=== PATIENT | male | born 1960 | race Two or more races ===

== ENCOUNTER 2016-10-06 03:48 | Inpatient (IN) | payer SELFPAY ==
[~2016-10-06] VITALS: Ht 170.2 cm; Wt 63.5 kg
[2016-10-06] MEDS ORDERED: IBUP-1619 PO (03:55)
--- NOTE | 2016-10-06 03:55 | NUR ---
TO BED 5 A 55 YO MALE BB RA88 FROM HOME. PER EMS REPORT,PATIENT HAD A SYNCOPAL EPISODE. PER PATIENT HE WAS TRYING TO MAKE COFFEE AND HE FELT WEAK AND SQUAT DOWN. HOWEVER PATIENT DID NOT BELIEVE THAT HE HIT HIS HEAD. UPON ARRIVAL TO ER, PATIENT IS AAOX3, NO S/S OF ACUTE DISTRESS. VSS. BREATHING EVEN AND UNLABORED. SAFETY MEASURES INITIATED. GOWNED. AWAITING FOR ER MD VINSON.
[2016-10-06] MEDS ORDERED: IV NS 0.9% 1,000 ML BAG IV ONE (04:00)
[2016-10-06] MEDS ORDERED: IV SET PRIMARY 1 EA INFUS.SET MC ONE (04:14)
[2016-10-06] MEDS ORDERED: IV NS 0.9% 1,000 ML ONE (04:14)
[2016-10-06 04:19] LABS: BASOPHILS # (AUTO) 0.1 /CMM (0.0-0.2); BASOPHILS % (AUTO) 0.4 % (0.0-2.0); EOSINOPHILS % (AUTO) 0.2 % (0.0-6.0); HEMATOCRIT 33 % (39-51); HEMOGLOBIN 11.2 g/dL (13.5-17.5); LYMPHOCYTES # (AUTO) 1.9 /CMM (0.8-4.8); LYMPHOCYTES % (AUTO) 10.6 % (20.0-44.0); MEAN CORPUSCULAR HEMOGLOBIN 30 PG (26.0-33.0); MEAN CORPUSCULAR HGB CONC 35 g/dl (31.0-36.0); MEAN CORPUSCULAR VOLUME 86 fL (80-96); MONOCYTES # (AUTO) 0.8 /CMM (0.1-1.30); MONOCYTES % (AUTO) 4.5 % (2.0-12.0); NEUTROPHILS # (AUTO) 15.4 /CMM (1.8-8.9); NEUTROPHILS % (AUTO) 84.3 % (43.0-81.0); PLATELET COUNT (AUTO) 394 /CMM (150-450); RDW COEFFICIENT OF VARIATION 14.2 (11.5-15.0); RED BLOOD CELL COUNT(AUTO) 3.77 MIL/uL (4.5-6.0); WHITE BLOOD COUNT (AUTO) 18.3 K/uL (4.3-11.0)
[2016-10-06 04:36] LABS: TROPONIN I < 0.017 ng/mL (0.00-0.056)
[2016-10-06 04:38] LABS: CALCIUM, SERUM 8.8 mg/dL (8.5-10.1); CARBON DIOXIDE 24 mmol/L (21-32); CHLORIDE 98 mmol/L (98-107); CREATININE 0.9 mg/dL (0.6-1.3); GLUCOSE 103 mg/dL (74-106); POTASSIUM 3.7 mmol/L (3.5-5.1); SODIUM SERUM 130 mmol/L (136-145); UREA NITROGEN, BLOOD 10 mg/dL (7-18)
[2016-10-06 04:43] LABS: INR 1.15 (0.87-1.13); PROTHROMBIN TIME 12.4 SECS (9.5-12.7)
[2016-10-06 04:44] LABS: ALANINE AMINOTRANSFERASE 43 U/L (12-78); ALBUMIN 2.4 g/dL (3.4-5.0); ALKALINE PHOSPHATASE 69 U/L (46-116); ASPARTATE AMINOTRANSFERASE 39 U/L (15-37); BILIRUBIN,DIRECT 0.2 mg/dL (0.0-0.2); BILIRUBIN,TOTAL 0.8 mg/dL (0.2-1.0); TOTAL PROTEIN, SERUM 6.6 g/dL (6.4-8.2)
--- NOTE | 2016-10-06 04:54 | NUR ---
URINE COLLECTED VIA CLEAN CATCH, CALLED LAB FOR DIRECTOR OF SPECIAL SERVICES.
[2016-10-06 05:06] LABS: APPEARANCE,URINE CLEAR (CLEAR); BILIRUBIN,URINE NEGATIVE (NEGATIVE); BLOOD, URINE NEGATIVE Ery/uL (NEGATIVE); COLOR,URINE YELLOW (YELLOW); KETONES,URINE TRACE (NEGATIVE); LEUKOCYTE ESTERASE ,URINE NEGATIVE (NEGATIVE); NITRITE, URINE NEGATIVE (NEGATIVE); PH,URINE 5.5 (5.0-8.0); PROTEIN,URINE TRACE mg/dl (NEGATIVE); UGLUCOSE NEGATIVE (NEGATIVE)
[2016-10-06 05:12] LABS: BACTERIA,URINE None seen /HPF (None Seen); RBC,URINE NONE SEEN /HPF (0-2); SQUAMOUS EPITHELIAL CELL,UR Rare /HPF (None Seen); WBC,URINE 0-2 /HPF (0-3)
--- NOTE | 2016-10-06 05:48 | NUR ---
CALLED [facility] TO EXPEDITE RADIOLOGIST'S REPORT OF CXR.
[2016-10-06] MEDS ORDERED: ONDANSETRON HCL/PF 4 MG/2 ML VIAL IVP PRN (06:00)
[2016-10-06] MEDS ORDERED: Z GUARD REMEDY 2 OZ OINT TP PRN (06:00)
[2016-10-06] MEDS ORDERED: MAGNESIUM HYDROXIDE 30 ML UDC PO PRN (06:00)
[2016-10-06] MEDS ORDERED: MAG HYDROX/AL HYDROX/SIMETH 30 ML UDC PO PRN (06:00)
[2016-10-06] MEDS ORDERED: ACETAMINOPHEN 325 MG TABLET PO PRN (06:00)
[2016-10-06] MEDS ORDERED: ZOLPIDEM TARTRATE 5 MG TABLET PO PRN (06:00)
--- NOTE | 2016-10-06 06:21 | NUR ---
REPORT GIVEN TO MJ FAULKNER FOR TELE ADMISSION AND AJ.
[2016-10-06] MEDS ORDERED: HYDROCODONE/APAP 5/325MG 1 EACH TABLET PO ONE (06:30)
[2016-10-06 06:35] VITALS: BP 106/64
[2016-10-06 06:45] VITALS: BP 106/64
--- NOTE | 2016-10-06 08:00 | NUR ---
MS RN ADMITTED A 55 YEAR OLD MALE, AWAKE,ALERT ORIENTED X4,NOT IN ANY FORM OF DISTRESS.CAME IN W/ DX OF SYNCOPE, DENIES PAIN AT THIS TIME, WILL MONITOR PATIENT'S CONDITION.
--- NOTE | 2016-10-06 08:30 | NUR ---
MS RN ON NPO FOR DR. AGNNON TO EVALUATE PATIENT.
--- NOTE | 2016-10-06 08:45 | NUR ---
MS RN WAS SEEN BY DR. TERESSA Cook/ ORDERS MADE AND CARRIED OUT.
[2016-10-06] MEDS: ACETYLCYSTEINE 10% 3,000 MG/30 ML VIAL PO SCH ×2 (09:00→18:37)
[2016-10-06] MEDS ORDERED: BARIUM SULFATE SUSP 450 ML BOTTLE PO ONE (09:52)
[2016-10-06 09:59] LABS: THYROID STIMULATING HORMONE 2.58 uIU/mL (0.358-3.74)
[2016-10-06] MEDS ORDERED: IOHEXOL-300 100 ML VIAL IV ONE (11:00)
[2016-10-06] MEDS ORDERED: CT SWABBABLE VALVE TRANS SET 1 EA INFUS.SET MC ONE (11:00)
[2016-10-06] MEDS ORDERED: IV NS 0.9% 250 ML IV ONE (11:00)
[2016-10-06] MEDS ORDERED: IV SET PRIMARY PUMP SET 1 EA INFUS.SET MC ONE (11:37)
--- NOTE | 2016-10-06 12:30 | NUR ---
MS FAULKNER WAS SEEN BY DR. NASRIN Cook/ ORDERS MADE AND CARRIED OUT.
[2016-10-06] MEDS: IV NS 0.9% 1,000 ML IV PRN ×2 (13:20→23:46)
[2016-10-06] MEDS: HYDROCODONE/APAP 5/325MG 1 EACH TABLET PO PRN ×3 (13:23→23:19)
[2016-10-06] MEDS: PANTOPRAZOLE 40 MG TABLET.DR PO SCH (13:24)
[2016-10-06 16:00] VITALS: BP 97/62
--- NOTE | 2016-10-06 19:20 | NUR ---
MS RN ON BED, NO DISTRESS NOTED.ALL NEEDS ATTENDED.
[2016-10-06 20:00] VITALS: BP 101/65
--- NOTE | 2016-10-06 20:00 | NUR ---
Received patient alert and oriented x4 with family at bedside pt was given norco 1839 was due until 2238 Pt has iv fluids of ns infusing at100 ml and hour no signs of infiltration noted. No signs of distressed noted fall and safety maintained. Pt monitored every hour and prn for safety and other needs pt may have. Will continue to monitor.
[2016-10-06] MEDS: IBUPROFEN 200 MG TABLET PO PRN (21:57)
--- NOTE | 2016-10-07 07:30 | NUR ---
PATIENT RECEIVED RESTING COMFORTABLY IN BED. NO S/S OR C/O PAIN OR DISTRESS NOTED. SIDE RAILS UP X2, CALL LIGHT LEFT WITHIN REACH. WILL CONTINUE PLAN OF CARE.
[2016-10-07 07:51] LABS: CALCIUM, SERUM 8.3 mg/dL (8.5-10.1); CREATININE 0.7 mg/dL (0.6-1.3); MAGNESIUM 1.9 mg/dL (1.8-2.4); POTASSIUM 4.3 mmol/L (3.5-5.1)
[2016-10-07 08:00] VITALS: BP 100/63
[2016-10-07 08:13] LABS: IMMUNOGLOBULIN A, SERUM 228 mg/dL (90-386); IMMUNOGLOBULIN G, SERUM 749 mg/dL (700-1600); IMMUNOGLOBULIN M, SERUM 37 mg/dL (20-172)
[2016-10-07 08:14] LABS: BASOPHILS % (AUTO) 0.2 % (0.0-2.0); EOSINOPHILS # (AUTO) 0.1 /CMM (0.0-0.7); EOSINOPHILS % (AUTO) 0.4 % (0.0-6.0); HEMATOCRIT 33 % (39-51); LYMPHOCYTES # (AUTO) 1.2 /CMM (0.8-4.8); LYMPHOCYTES % (AUTO) 9.5 % (20.0-44.0); MEAN CORPUSCULAR HEMOGLOBIN 30 PG (26.0-33.0); MEAN CORPUSCULAR HGB CONC 34 g/dl (31.0-36.0); MEAN CORPUSCULAR VOLUME 87 fL (80-96); MONOCYTES % (AUTO) 7.3 % (2.0-12.0); NEUTROPHILS # (AUTO) 10.9 /CMM (1.8-8.9); NEUTROPHILS % (AUTO) 82.6 % (43.0-81.0); PLATELET COUNT (AUTO) 356 /CMM (150-450); RDW COEFFICIENT OF VARIATION 14.6 (11.5-15.0); RED BLOOD CELL COUNT(AUTO) 3.73 MIL/uL (4.5-6.0); WHITE BLOOD COUNT (AUTO) 13.1 K/uL (4.3-11.0)
[2016-10-07] MEDS: PANTOPRAZOLE 40 MG TABLET.DR PO SCH (08:30)
[2016-10-07] MEDS: HYDROCODONE/APAP 5/325MG 1 EACH TABLET PO PRN ×3 (08:31→21:00)
[2016-10-07] MEDS: ACETYLCYSTEINE 10% 3,000 MG/30 ML VIAL PO SCH ×2 (08:38→17:08)
[2016-10-07] MEDS: IBUPROFEN 200 MG TABLET PO PRN (13:11)
[2016-10-07] MEDS: IV NS 0.9% 1,000 ML IV PRN (13:23)
--- NOTE | 2016-10-07 14:21 | NUR ---
NURSING AQUATIC SCIENTIST AND PATHOLOGY AWARE OF COMPUTED TOMOGRAPHY GUIDED NEEDLE BIOPSY. TO BE DONE TOMORROW (10/08/16) AT 0930. SPOKE WITH RN. PATIENT TO BE NPO AFTER MIDNIGHT. AWAITING CONSENTS FOR PROCEDURE AND MODERATE SEDATION. RN WILL CALL BACK TO CONFIRM CONSENTS HAVE BEEN OBTAINED.
[2016-10-07] MEDS ORDERED: SECONDARY IV SET 1 EA INFUS.SET MC ONE (14:37)
[2016-10-07] MEDS: SOD FERRIC GLUC 125 MG in IV NS 0.9% 100 ML IV SCH (14:45)
[2016-10-07] MEDS ORDERED: TUBERCULIN,PURIF.PROT.DERIV. 5 TU/0.1 ML VIAL ID ONE (15:30)
[2016-10-07 16:00] VITALS: BP 101/60
--- NOTE | 2016-10-07 18:29 | NUR ---
CHANGE OF SHIFT REPORT PT RESTING COMFORTABLY IN BED. NO S/S OR C/O PAIN OR DISTRESS NOTED. SIDE RAILS UP X2, CALL LIGHT LEFT WITHIN REACH. PT KEPT CLEAN, DRY, AND COMFORTABLE. NO SIGNIFICANT CHANGES FROM PREVIOUS SHIFT. WILL GIVE REPORT TO KRISTINE FAULKNER.
--- NOTE | 2016-10-07 19:10 | NUR ---
RN OPEN NOTES RECEIVED PATIENT AWAKE IN BED WITH FAMILY AT BEDSIDE. A/O X4. NO SIGNS OF DISTRESS OR DISCOMFORT. BREATHING EVEN AND UNLABORED. DENIES ANY PAIN AT THIS TIME. IV ACCESS IN LAC WITH NS INFUSING, PATENT AND INTACT, NO SIGNS OF REDNESS OR INFILTRATION. BED IN LOW LOCKED POSITION WITH SIDE RAILS X2. CALL LIGHT WITHIN REACH. WILL CONTINUE TO MONITOR.
[2016-10-07 20:00] VITALS: BP 113/67
--- NOTE | 2016-10-07 21:00 | NUR ---
RN NOTES ADMINISTERED NORCO 5/325 ORDERED FOR PAIN 8/10 IN LOWER BACK. WILL CONTINUE TO MONITOR.
--- NOTE | 2016-10-08 06:54 | NUR ---
RN CLOSING NOTES PATIENT RESTING IN BED EASILY AROUSABLE TO NAME. A/O X4. NO SIGNS OF DISTRESS OR DISCOMFORT. BREATHING EVEN AND UNLABORED. DENIES ANY PAIN AT THIS TIME. IV ACCESS IN LAC WITH NS INFUSING, PATENT AND INTACT, NO SIGNS OF REDNESS OR INFILTRATION. NO SIGNIFICANT CHANGES THROUGH THE NIGHT. ALL NEEDS MET. BED IN LOW LOCKED POSITION WITH SIDE RAILS X2. CALL LIGHT WITHIN REACH. WILL ENDORSE TO AM SHIFT FOR AJ.
[2016-10-08] MEDS: PANTOPRAZOLE 40 MG TABLET.DR PO SCH (07:30)
--- NOTE | 2016-10-08 07:52 | NUR ---
RN MS NOTES RECEIVED PATIENT IN BED, A/O X 4 AND VERBALLY RESPONSIVE. NO APPARENT DISTRESS NOTED, DENIES PAIN. PATIENT IS NPO, SCHEDULED FOR N Addendum: 10/08/16 at [address]757 [address] F[address] RN CT NEEDLE BIOPSY. IV ON LEFT AC PATENT INFUSING NS AT 60ML/HR. ALL NEEDS MET, CALL LIGHT WITHIN REACH.
[2016-10-08 08:00] VITALS: BP 113/68
--- NOTE | 2016-10-08 08:31 | NUR ---
SPOKE WITH RN. CT GUIDED NEEDLE BIOPSY RESCHEDULED FOR 15:30 TODAY. NURSING ITEM REPAIR MANAGER AWARE.
[2016-10-08 08:53] LABS: BASOPHILS % (AUTO) 0.3 % (0.0-2.0); EOSINOPHILS % (AUTO) 0.1 % (0.0-6.0); HEMATOCRIT 33 % (39-51); HEMOGLOBIN 11.2 g/dL (13.5-17.5); LYMPHOCYTES % (AUTO) 7.7 % (20.0-44.0); MEAN CORPUSCULAR HEMOGLOBIN 29 PG (26.0-33.0); MEAN CORPUSCULAR HGB CONC 34 g/dl (31.0-36.0); MEAN CORPUSCULAR VOLUME 86 fL (80-96); MONOCYTES % (AUTO) 7.3 % (2.0-12.0); NEUTROPHILS # (AUTO) 11.3 /CMM (1.8-8.9); NEUTROPHILS % (AUTO) 84.6 % (43.0-81.0); PLATELET COUNT (AUTO) 358 /CMM (150-450); RDW COEFFICIENT OF VARIATION 14.3 (11.5-15.0); RED BLOOD CELL COUNT(AUTO) 3.83 MIL/uL (4.5-6.0); WHITE BLOOD COUNT (AUTO) 13.4 K/uL (4.3-11.0)
[2016-10-08] MEDS: CYANOCOBALAMIN 500 MCG TABLET PO SCH (09:00)
[2016-10-08] MEDS: FOLIC ACID 1 MG TABLET PO SCH (09:00)
[2016-10-08 09:11] LABS: CALCIUM, SERUM 8.6 mg/dL (8.5-10.1); CREATININE 0.8 mg/dL (0.6-1.3); POTASSIUM 4.5 mmol/L (3.5-5.1)
[2016-10-08] MEDS ORDERED: oxyCODONE IR immediate release 5 MG CAPSULE PO PRN (14:00)
[2016-10-08] MEDS ORDERED: NALOXONE PREFILLED SYRINGE 2 MG/2 ML SYRINGE IV ONE (14:30)
[2016-10-08] MEDS ORDERED: MIDAZOLAM HCL 5MG/ML VIAL 25 MG/5 ML VIAL IV ONE (14:30)
[2016-10-08] MEDS ORDERED: FENTANYL PF 250MCG/5ML AMPUL IV ONE (14:30)
--- NOTE | 2016-10-08 14:30 | NUR ---
RN MS NOTES PATIENT WENT DOWN FOR CT BIOPSY.
[2016-10-08] MEDS ORDERED: LIDOCAINE HCL/PF 1% 30 ML SDV ONE (16:19)
[2016-10-08] MEDS: IV NS 0.9% 1,000 ML IV PRN (18:07)
[2016-10-08] MEDS: ACETAMINOPHEN 325 MG TABLET PO SCH (18:08)
[2016-10-08] MEDS: SOD FERRIC GLUC 125 MG in IV NS 0.9% 100 ML IV SCH (18:08)
--- NOTE | 2016-10-08 19:12 | NUR ---
RN MS CLOSING NOTES PATIENT IN BED, NO APPARENT DISTRESS NOTED, DENIES PAIN DENIES SOB. PATIENT HAD A CT BIOPSY OR RIGHT RETROPERITONEAL LESION, AND A DRAIN INSERTED ON THE RIGHT SIDE OF THE BACK FOR DRAINAGE OF ABSCESS. IV LINE CHANGED TO LEFT HAND PATENT, INFUSING NS AT 60ML/HR. PATIENT NOTED WITH TEMP OF 101.1, 605 MG OF TYLENOL GIVEN. ALL DUES MEDS GIVEN, KEPT CLEAN AND DRY. WILL ENDORSE CARE TO PM SHIFT.
[2016-10-08] MEDS: KETOROLAC TROMETHAMINE INJ 30 MG/ML VIAL IV SCH (19:14)
--- NOTE | 2016-10-08 19:35 | NUR ---
GPS RN NOTES RECEIVED PATIENT AWAKE IN BED. FAMILY AT BEDSIDE. ALERT AND ORIENTED X 3-4. NO COMPLAINTS VERBALIZED AT THIS TIME. RESPIRATIONS EVEN AND UNLABORED. WITH DRAIN AT RIGHT SIDE OF BACK. WILL MONITOR PATIENT FOR SAFETY.
[2016-10-08 20:00] VITALS: BP 93/55
[2016-10-08] MEDS: GABAPENTIN 300 MG CAPSULE PO SCH (22:09)
[2016-10-09 00:05] LABS: *SPE A/G RATIO 0.8 (0.7-1.7); *SPE ALBUMIN 2.3 g/dL (2.9-4.4); *SPE ALPHA-1-GLOBULIN 0.4 g/dL (0.0-0.4); *SPE ALPHA-2-GLOBULIN 0.8 g/dL (0.4-1.0); *SPE BETA GLOBULIN 0.8 g/dL (0.7-1.3); *SPE GLOBULIN, TOTAL 2.8 g/dL (2.2-3.9); *SPE M-SPIKE Not Observed g/dL (Not Observed); *SPE PROTEIN TOTAL 5.1 g/dL (6.0-8.5); *SPEGAMMA GLOBULIN 0.7 g/dL (0.4-1.8)
[2016-10-09 00:05] LABS: *SPE A/G RATIO 0.7 (0.7-1.7); *SPE ALBUMIN 2.5 g/dL (2.9-4.4); *SPE ALPHA-1-GLOBULIN 0.5 g/dL (0.0-0.4); *SPE GLOBULIN, TOTAL 3.4 g/dL (2.2-3.9); *SPE M-SPIKE Not Observed g/dL (Not Observed); *SPE PROTEIN TOTAL 5.9 g/dL (6.0-8.5); *SPEGAMMA GLOBULIN 0.9 g/dL (0.4-1.8); HEPATITIS Be AB Negative (Negative)
[2016-10-09] MEDS: ACETAMINOPHEN 325 MG TABLET PO SCH ×4 (00:09→17:18)
[2016-10-09] MEDS: KETOROLAC TROMETHAMINE INJ 30 MG/ML VIAL IV SCH ×3 (01:04→17:18)
[2016-10-09 06:30] LABS: BASOPHILS # (AUTO) 0.1 /CMM (0.0-0.2); BASOPHILS % (AUTO) 0.5 % (0.0-2.0); EOSINOPHILS % (AUTO) 0.2 % (0.0-6.0); HEMATOCRIT 34 % (39-51); HEMOGLOBIN 11.6 g/dL (13.5-17.5); LYMPHOCYTES # (AUTO) 0.9 /CMM (0.8-4.8); LYMPHOCYTES % (AUTO) 6.2 % (20.0-44.0); MEAN CORPUSCULAR HEMOGLOBIN 29 PG (26.0-33.0); MEAN CORPUSCULAR HGB CONC 34 g/dl (31.0-36.0); MEAN CORPUSCULAR VOLUME 86 fL (80-96); MONOCYTES # (AUTO) 0.8 /CMM (0.1-1.30); MONOCYTES % (AUTO) 6.1 % (2.0-12.0); NEUTROPHILS # (AUTO) 12.1 /CMM (1.8-8.9); PLATELET COUNT (AUTO) 348 /CMM (150-450); RDW COEFFICIENT OF VARIATION 14.2 (11.5-15.0); RED BLOOD CELL COUNT(AUTO) 3.97 MIL/uL (4.5-6.0); WHITE BLOOD COUNT (AUTO) 13.9 K/uL (4.3-11.0)
[2016-10-09 06:51] LABS: CALCIUM, SERUM 8.8 mg/dL (8.5-10.1); CREATININE 0.7 mg/dL (0.6-1.3); POTASSIUM 4.5 mmol/L (3.5-5.1)
--- NOTE | 2016-10-09 07:15 | NUR ---
MS RN OPENING NOTES RECEIVED PT. FROM NIGHTSHIFT NURSE IN STABLE CONDITION. PT. IS A/O X4. NO SOB OR SIGNS OF DISTRESS NOTED. BREATHING IS EVEN AND UNLABORED. COMPLAINS OF ACHING BACK PAIN 12/04. DRAIN PRESENT ON RIGHT SIDE. NO DRAINAGE AT THIS TIME. SURGICAL DRESSING INTACT AND DRY. IV PRESENT ON LEFT HAND 20 PATENT AND INTACT. BED IN LOW LOCKED POSITION, SIDE RAILS UP X2, CALL LIGHT WITHIN REACH. WILL CONTINUE TO MONITOR.
[2016-10-09 08:00] VITALS: BP 103/70
[2016-10-09] MEDS: FOLIC ACID 1 MG TABLET PO SCH (08:24)
[2016-10-09] MEDS: PANTOPRAZOLE 40 MG TABLET.DR PO SCH (08:24)
[2016-10-09] MEDS: CYANOCOBALAMIN 500 MCG TABLET PO SCH (08:25)
[2016-10-09] MEDS: IV NS 0.9% 1,000 ML IV PRN (11:17)
[2016-10-09] MEDS: PIPERACILLIN /TAZOBACTAM 3.375 G in IV D5W 50 ML IV SCH ×2 (13:20→17:18)
[2016-10-09] MEDS: SOD FERRIC GLUC 125 MG in IV NS 0.9% 100 ML IV SCH (14:50)
[2016-10-09 16:00] VITALS: BP 106/63
--- NOTE | 2016-10-09 18:40 | NUR ---
MS RN CLOSING NOTES PT. IN STABLE CONDITION. NO ACUTE CHANGES IN CONDITION DURING SHIFT. ALL NEEDS MET AND ORDERS CARRIED OUT ACCORDINGLY. WILL ENDORSE TO NITROGLYCERIN NITRATOR OPERATOR BATCH NURSE FOR AJ
--- NOTE | 2016-10-09 19:30 | NUR ---
RN NOTES RECEIVED PT AWAKE ON BED, A/OX4, FAMILY AT BEDSIDE, DRAINIAGE A THE BACK OF THE PT. IN PLACE, NO OUTPUT NOTED, IV FLUID NS RUNNING @ 60ML/HR, DENIES PAIN, NO SOB, CLAL LIGHT WITHIN REACH, SIDERAILS UPX2 CONTINUE TO MONITOR
[2016-10-09 20:00] VITALS: BP 101/70
[2016-10-09] MEDS: GABAPENTIN 300 MG CAPSULE PO SCH (21:18)
[2016-10-10] MEDS: PIPERACILLIN /TAZOBACTAM 3.375 G in IV D5W 50 ML IV SCH ×5 (05:43→17:31)
[2016-10-10] MEDS: IV NS 0.9% 1,000 ML IV PRN (05:45)
[2016-10-10] MEDS: ACETAMINOPHEN 325 MG TABLET PO SCH ×4 (06:00→16:50)
--- NOTE | 2016-10-10 06:27 | NUR ---
RN NOTES AWAKE, DRAINAGE ON PT'S BACK IN PLACE, NO OUTPUT, MORNING CARE RENDERED, ENDORSED TO DAYSHIFT NURSE FOR CONTINUITY OF CARE
[2016-10-10 06:39] LABS: BASOPHILS % (AUTO) 0.2 % (0.0-2.0); EOSINOPHILS # (AUTO) 0.1 /CMM (0.0-0.7); EOSINOPHILS % (AUTO) 0.6 % (0.0-6.0); HEMATOCRIT 33 % (39-51); HEMOGLOBIN 11.2 g/dL (13.5-17.5); LYMPHOCYTES # (AUTO) 1.1 /CMM (0.8-4.8); LYMPHOCYTES % (AUTO) 8.1 % (20.0-44.0); MEAN CORPUSCULAR HEMOGLOBIN 30 PG (26.0-33.0); MEAN CORPUSCULAR HGB CONC 34 g/dl (31.0-36.0); MEAN CORPUSCULAR VOLUME 87 fL (80-96); MONOCYTES # (AUTO) 0.9 /CMM (0.1-1.30); NEUTROPHILS # (AUTO) 11.1 /CMM (1.8-8.9); NEUTROPHILS % (AUTO) 84.1 % (43.0-81.0); PLATELET COUNT (AUTO) 379 /CMM (150-450); RDW COEFFICIENT OF VARIATION 14.8 (11.5-15.0); RED BLOOD CELL COUNT(AUTO) 3.76 MIL/uL (4.5-6.0); WHITE BLOOD COUNT (AUTO) 13.2 K/uL (4.3-11.0)
[2016-10-10 06:52] LABS: CALCIUM, SERUM 8.7 mg/dL (8.5-10.1); CREATININE 0.7 mg/dL (0.6-1.3); MAGNESIUM 1.8 mg/dL (1.8-2.4)
[2016-10-10 08:00] VITALS: BP 149/61
[2016-10-10] MEDS: CYANOCOBALAMIN 500 MCG TABLET PO SCH (08:50)
[2016-10-10] MEDS: FOLIC ACID 1 MG TABLET PO SCH (08:50)
[2016-10-10] MEDS: PANTOPRAZOLE 40 MG TABLET.DR PO SCH (08:50)
[2016-10-10] MEDS: KETOROLAC TROMETHAMINE INJ 30 MG/ML VIAL IV SCH ×2 (08:51)
[2016-10-10 16:00] VITALS: BP 116/70
[2016-10-10] MEDS: SOD FERRIC GLUC 125 MG in IV NS 0.9% 100 ML IV SCH (16:50)
--- NOTE | 2016-10-10 19:00 | NUR ---
MS RN INITIAL NOTE PT RECEIVED IN BED, A/O X 3, NO S/S OF RESPIRATORY DISTRESS OR SOB. SAFE ENVIRONMENT PROVIDED FREE OF CLUTTERS. IV SITE INTACT WITH NO S/S OF INFILTRATION NOTED.BED IN LOCKED, LOW POSITION. CALL LIGHT WITHIN EASY REACH. WILL CONTINUE TO MONITOR.
[2016-10-10 20:00] VITALS: BP 99/65
[2016-10-10] MEDS: GABAPENTIN 300 MG CAPSULE PO SCH (21:13)
--- NOTE | 2016-10-10 22:01 | NUR ---
PLAN OF CARE WAS GIVEN TO REJI FAULKNER OF POC PATIENT IN STABLE CONDITION
[2016-10-11] MEDS: ACETAMINOPHEN 325 MG TABLET PO SCH ×5 (00:18→23:09)
[2016-10-11] MEDS: PIPERACILLIN /TAZOBACTAM 3.375 G in IV D5W 50 ML IV SCH ×5 (00:18→23:09)
[2016-10-11] MEDS: IV NS 0.9% 1,000 ML IV PRN (05:19)
--- NOTE | 2016-10-11 06:17 | NUR ---
RN CLOSING NOTES PATIENT RESTING IN BED. AWAKE. A/O X4. BREATHING EVEN AND UNLABORED. NO SIGNS OF DISTRESS OR DISCOMFORT. IV ACCESS IN LAC WITH NS INFUSING, PATENT AND INTACT, NO SIGNS OF REDNESS OR INFILTRATION. ALL NEEDS MET. BED IN LOW LOCKED POSITION WITH SIDE RAILS X2. CALL LIGHT WITHIN REACH. WILL ENDORSE TO AM SHIFT FOR AJ.
[2016-10-11 06:29] LABS: EOSINOPHILS # (AUTO) 0.1 /CMM (0.0-0.7); EOSINOPHILS % (AUTO) 0.7 % (0.0-6.0); HEMATOCRIT 32 % (39-51); HEMOGLOBIN 10.6 g/dL (13.5-17.5); LYMPHOCYTES % (AUTO) 7.4 % (20.0-44.0); MEAN CORPUSCULAR HEMOGLOBIN 29 PG (26.0-33.0); MEAN CORPUSCULAR HGB CONC 34 g/dl (31.0-36.0); MEAN CORPUSCULAR VOLUME 87 fL (80-96); MONOCYTES % (AUTO) 7.3 % (2.0-12.0); NEUTROPHILS # (AUTO) 11.8 /CMM (1.8-8.9); NEUTROPHILS % (AUTO) 84.6 % (43.0-81.0); PLATELET COUNT (AUTO) 342 /CMM (150-450); RDW COEFFICIENT OF VARIATION 15.1 (11.5-15.0); RED BLOOD CELL COUNT(AUTO) 3.64 MIL/uL (4.5-6.0)
--- NOTE | 2016-10-11 07:10 | NUR ---
ms rn initial notes Received patient in bed, asleep, head of bed elevated, no SOB or distress noted. On room air and tolerated well. Drainage on the right lower back area with serosanguineous secretion noted. No complaint of pain or discomfort at this time. Kept patient clean and comfortable in bed, call light with in patient reach, will continue to monitor accordingly.
[2016-10-11 07:14] LABS: CALCIUM, SERUM 8.2 mg/dL (8.5-10.1); CREATININE 0.8 mg/dL (0.6-1.3); POTASSIUM 3.9 mmol/L (3.5-5.1)
[2016-10-11 08:00] VITALS: BP 103/70
[2016-10-11] MEDS: PANTOPRAZOLE 40 MG TABLET.DR PO SCH (09:57)
[2016-10-11] MEDS: FOLIC ACID 1 MG TABLET PO SCH (09:57)
[2016-10-11] MEDS: CYANOCOBALAMIN 500 MCG TABLET PO SCH (09:57)
--- NOTE | 2016-10-11 10:55 | NUR ---
ms rn notes Dr. Knott came seen and examined the patient and informed regarding patient diet order and change it to full liquid diet. All orders carried out and noted. Will continue to monitor accordingly.
[2016-10-11] MEDS ORDERED: IOHEXOL-300 100 ML VIAL IV ONE (13:26)
[2016-10-11] MEDS ORDERED: IV NS 0.9% 250 ML IV ONE (13:26)
[2016-10-11] MEDS ORDERED: CT SWABBABLE VALVE TRANS SET 1 EA INFUS.SET MC ONE (13:26)
--- NOTE | 2016-10-11 14:35 | NUR ---
PT HAS RESIDUAL OF ORAL CONTRAST FROM PRIOR STUDY DONE OUTSIDE OF HOSPITAL. NURSE WAS INSTRUCTED TO OBTAIN CLEANSING ENEMA ORDER FROM AN MD. ONCE PT IS CLEANSED WE CAN TAKE A KUB AND IF IT IS OKAYED WITH RADIOLOGIST WE CAN DO THE CT STUDY. QUEENIE QUIJANO RT
[2016-10-11] MEDS: SOD FERRIC GLUC 125 MG in IV NS 0.9% 100 ML IV SCH (15:02)
[2016-10-11 15:42] VITALS: BP 107/63
--- NOTE | 2016-10-11 19:01 | NUR ---
ms rn closing notes All needs provided, attended, and anticipated. kept patient clean and comfortable in bed, call light with in patient reach, Endorsed to next shift RN to continue care.
[2016-10-11 20:00] VITALS: BP 113/64
[2016-10-11] MEDS: GABAPENTIN 300 MG CAPSULE PO SCH (21:18)
[2016-10-12 04:00] VITALS: BP 118/74
[2016-10-12] MEDS: PIPERACILLIN /TAZOBACTAM 3.375 G in IV D5W 50 ML IV SCH ×4 (05:27→23:38)
[2016-10-12] MEDS: ACETAMINOPHEN 325 MG TABLET PO SCH ×2 (05:27→12:00)
--- NOTE | 2016-10-12 05:48 | NUR ---
MS RN NOTES TYLENOL 650 MG 2 TABS REFUSED BY THE PATIENT DUE AT 0600 DESPITE RISKS AND BENEFITS OFFERED 3X PATIENT STILL REFUSES BELIEVES HE WILL VOMIT WHEN EATING BREAKFAST. MADE AWARE.
--- NOTE | 2016-10-12 06:20 | NUR ---
MS RN CLOSING NOTES PATIENT COMFORTABLY ASLEEP AND EASILY AWAKEN, HEAD OF BED ELEVATED FOR BETTER LUNG EXPANSION TOLERATING ROOM AIR 02 SAT AT 97% IV HYDRATION ONGOING NS AT 60 CC, DEMARIO DRAIN INTACT NO S/S OF INFECTION NOTED, IV SITE NO S/S OF INFILTRATED, PATIENT DENIES PAIN AT THIS TIME. 0/10 RESPIRATIONS EVEN AND UNLABORED. LUNG SOUNDS CLEAR UPON AUSCULTATION, NO S/S OF ACUTE DISTRESS, NO SOB, NO COUGH, NO CONGESTION, SKIN WARM AND DRY TO TOUCH, AFEBRILE, ALL NURSING CARE NEEDS PROVIDED AND RENDERED, NEEDS ATTENDED AND ANTICIPATED, KEPT CLEAN AND DRY AND COMFORTABLE, GOOD SKIN ARE PROVIDED. NO C/O OF CONSTIPATION. ON ATB WITH NO A/R NOTED. FREQUENT VISUAL CHECK DONE FOR SAFETY EVERY 2 HOURS. SAFE HAZARD FREE ENVIRONMENT PROVIDED. CALL LIGHT WITHIN EASY TO REACH, ON LOW BED AT ALL TIMES TO ENSURE SAFETY, WILL ENDORSE TO THE NEXT SHIFT CONTINUE PLAN OF CARE.
[2016-10-12 07:02] LABS: BASOPHILS % (AUTO) 0.2 % (0.0-2.0); EOSINOPHILS # (AUTO) 0.1 /CMM (0.0-0.7); EOSINOPHILS % (AUTO) 0.4 % (0.0-6.0); HEMATOCRIT 31 % (39-51); HEMOGLOBIN 10.5 g/dL (13.5-17.5); LYMPHOCYTES % (AUTO) 6.5 % (20.0-44.0); MEAN CORPUSCULAR HEMOGLOBIN 29 PG (26.0-33.0); MEAN CORPUSCULAR HGB CONC 34 g/dl (31.0-36.0); MEAN CORPUSCULAR VOLUME 87 fL (80-96); MONOCYTES # (AUTO) 0.9 /CMM (0.1-1.30); MONOCYTES % (AUTO) 5.7 % (2.0-12.0); NEUTROPHILS # (AUTO) 13.6 /CMM (1.8-8.9); NEUTROPHILS % (AUTO) 87.2 % (43.0-81.0); PLATELET COUNT (AUTO) 376 /CMM (150-450); RDW COEFFICIENT OF VARIATION 14.7 (11.5-15.0); WHITE BLOOD COUNT (AUTO) 15.6 K/uL (4.3-11.0)
--- NOTE | 2016-10-12 07:10 | NUR ---
ms rn initial notes Received patient in bed, asleep, head of bed elevated, no SOB or distress noted, on room air and tolerated well. IV intact and patent. DEMARIO drain in placed attached to drainage bulb with no output noted. Kept patient clean and comfortable in bed, call light with in patient reach, will continue to monitor accordingly.
[2016-10-12 07:34] LABS: CALCIUM, SERUM 8.2 mg/dL (8.5-10.1); CREATININE 0.8 mg/dL (0.6-1.3); POTASSIUM 3.6 mmol/L (3.5-5.1)
[2016-10-12 08:00] VITALS: BP 113/72
[2016-10-12] MEDS: FOLIC ACID 1 MG TABLET PO SCH (08:17)
[2016-10-12] MEDS: PANTOPRAZOLE 40 MG TABLET.DR PO SCH (08:17)
[2016-10-12] MEDS: CYANOCOBALAMIN 500 MCG TABLET PO SCH (08:17)
--- NOTE | 2016-10-12 12:07 | NUR ---
MS RN NOTES Held tylenol due to patient refused and MD aware, MD will discontinue previous tylenol and change it to PRN. Will continue to monitor patient.
[2016-10-12] MEDS ORDERED: ACETAMINOPHEN 325 MG TABLET PO PRN (12:30)
[2016-10-12 16:00] VITALS: BP 104/64
--- NOTE | 2016-10-12 16:11 | NUR ---
ms rn notes Endorsed to RN assigned to continue care.
--- NOTE | 2016-10-12 19:30 | NUR ---
MS/RN CLOSING NOTES PT. IS IN BED A&OX4. PT. HAS FAMILY NEAR BEDSIDE. PT. IS BREATHING ON ROOM AIR UNLABORED, AND EVENLY. NO S/S OF ACUTE DISTRESS. PT. HAS IV FLUIDS RUNNING AT 60ML/HR. URINAL NEAR BEDSIDE. SAPPHIRE DANIELS DRAIN ON RIGHT SIDE. BED IS IN LOW POSITION, 2 SIDE RAILS UP, AND INSTRUCTED PT. TO USE CALL LIGHT FOR ASSISTANCE. WILL ENDORSE REPORT TO SOLID WASTE COLLECTOR NURSE.
--- NOTE | 2016-10-12 19:30 | NUR ---
MS/RN NOTES PT. TEMP. AT 1600 WAS 99.4 F. RECHECKED TEMPERATURE AT 1800 TEMP. WAS 100.2 F. IV ANTIBIOTICS AND TYLENOL WAS GIVEN. NEW TEMP. WAS 100.6 F AT 1930, PT. DENIED CHILLS, NO S/S OF SWEATING, AND BODY ACHES. WILL ENDORSE IN REPORT TO BRICK KILN BURNER NURSE.
--- NOTE | 2016-10-12 19:35 | NUR ---
RN NOTES RECEIVED PT AWAKE, HOB ELEVATED, NO SOB, NOT IN DISTRESS, ON ROOM AIR AND TOLERATED WELL. PT ALERT AND ORIENTED X4, DENIES ANY PAIN AND DISCOMFORT. IV ACCESS ON RIGHT HAND PATENT AND INTACT WITH ONGOING IVF INFUSING WELL. DEMARIO DRAIN ON RIGHT LOWER BACK INTACT ATTACHED TO DRAINAGE BULB WITH NO OUTPUT NOTED. KEEP PT COMFORTABLE AND ATTENDED, BED IN THE LOWEST POSITION, LOCKED, SIDE RAILS X2 UP WITH CALL LIGHT WITH IN REACH. WILL CONTINUE TO MONITOR PT.
[2016-10-12 20:00] VITALS: BP 108/68
[2016-10-12] MEDS: GABAPENTIN 300 MG CAPSULE PO SCH (21:55)
[2016-10-12 22:00] VITALS: BP 108/68
--- NOTE | 2016-10-12 22:00 | NUR ---
RN NOTES TEMP CHECKED 99.0 PT DENIES ANY PAIN AND DISCOMFORT. WILL CONTINUE TO MONITOR .
[2016-10-13] MEDS: oxyCODONE IR immediate release 5 MG CAPSULE PO PRN (04:53)
--- NOTE | 2016-10-13 04:55 | NUR ---
RN NOTES PT COMPLAINS OF RIGHT LOWER BACK PAIN 10/04, OXY IR 5 MG TAB GIVEN PO AND TOLERATED WELL. WITH LATEST TEMP OF 98.5.WILL CONTINUE TO MONITOR PT.
[2016-10-13] MEDS: IV NS 0.9% 1,000 ML IV PRN (05:08)
[2016-10-13] MEDS: PIPERACILLIN /TAZOBACTAM 3.375 G in IV D5W 50 ML IV SCH ×3 (05:15→17:47)
[2016-10-13 06:56] LABS: BASOPHILS % (AUTO) 0.2 % (0.0-2.0); EOSINOPHILS % (AUTO) 0.1 % (0.0-6.0); HEMATOCRIT 31 % (39-51); HEMOGLOBIN 10.7 g/dL (13.5-17.5); LYMPHOCYTES # (AUTO) 0.8 /CMM (0.8-4.8); LYMPHOCYTES % (AUTO) 5.3 % (20.0-44.0); MEAN CORPUSCULAR HEMOGLOBIN 30 PG (26.0-33.0); MEAN CORPUSCULAR HGB CONC 35 g/dl (31.0-36.0); MEAN CORPUSCULAR VOLUME 86 fL (80-96); MONOCYTES # (AUTO) 0.9 /CMM (0.1-1.30); NEUTROPHILS # (AUTO) 12.9 /CMM (1.8-8.9); NEUTROPHILS % (AUTO) 88.4 % (43.0-81.0); PLATELET COUNT (AUTO) 370 /CMM (150-450); RDW COEFFICIENT OF VARIATION 14.9 (11.5-15.0); RED BLOOD CELL COUNT(AUTO) 3.62 MIL/uL (4.5-6.0); WHITE BLOOD COUNT (AUTO) 14.6 K/uL (4.3-11.0)
[2016-10-13 07:13] LABS: CALCIUM, SERUM 8.1 mg/dL (8.5-10.1); CREATININE 0.8 mg/dL (0.6-1.3); POTASSIUM 3.8 mmol/L (3.5-5.1)
--- NOTE | 2016-10-13 07:23 | NUR ---
RN NOTES PT ASLEEP, NO SOB, NOT IN DISTRESS, ON ROOM AIR AND TOLERATED WELL. VITAL SIGNS STABLE, AFEBRILE WITH LATEST TEMP OF 98.8. NO EPISODE OF NAUSEA AND VOMITING. KEPT PAIN AT TOLERABLE LEVEL ON HIS RIGHT LOWER BACK. STILL NOTED WITH POOR PO INTAKE, PT REFUSED TO EAT DINNER AND SNACK. DEMARIO DRAIN INTACT, NO OUTPUT NOTED. ALL DUE MEDS GIVEN. ALL NEEDS ATTENDED. WILL ENDORSE TO MORNING RN FOR CONTINUITY OF CARE.
--- NOTE | 2016-10-13 07:47 | NUR ---
RN OPENING NOTES RECEIVED PATIENT IN BED, AWAKE, HOB ELEVATED, NO SOB OR DISTRESS NOTED. A/O X4, VERBALLY RESPONSIVE AND ABLE TO MAKE NEEDS KNOWN. IV INTACT AND PATENT. KEPT PATIENT CLEAN AND COMFORTABLE IN BED, CALL LIGHT WITHIN PATIENT REACH, WILL CONTINUE TO MONITOR ACCORDINGLY.
[2016-10-13 08:00] VITALS: BP 113/68
[2016-10-13] MEDS: FOLIC ACID 1 MG TABLET PO SCH (08:42)
[2016-10-13] MEDS: PANTOPRAZOLE 40 MG TABLET.DR PO SCH (08:42)
[2016-10-13] MEDS: CYANOCOBALAMIN 500 MCG TABLET PO SCH (08:42)
--- NOTE | 2016-10-13 14:19 | NUR ---
RN NOTES PATIENT IS COMFORTABLE IN BED WITH NO SIGNS OF SOB OR DISTRESS NOTED. FAMILY MEMBER AT BEDSIDE.
--- NOTE | 2016-10-13 15:13 | NUR ---
Pt's cousin Angela visited with CARLOS requesting that she would like assistance in applying for Medi-sunny for the pt. CARLOS informed Angela she will inform insurance liaison Caroline Amado regarding her request for pt. and will forward her contact information. CARLOS called Caroline at x [phone] and left her a voicemail message with pt's request for applying for Medi-sunny. CARLOS also left Angela's phone number for Caroline to contact regarding Medi-sunny application.
[2016-10-13] MEDS ORDERED: ERTA1VIA2 IV (15:37)
[2016-10-13] MEDS ORDERED: ACET325T53 PO (15:37)
[2016-10-13 16:00] VITALS: BP 117/65
--- NOTE | 2016-10-13 19:15 | NUR ---
RN NOTES RECEIVED PT AWAKE, NO SOB, NOT IN DISTRESS, ON ROOM AIR AND TOLERATED WELL. PT ALERT AND ORIENTED X4, DENIES ANY PAIN AND DISCOMFORT. IV ACCESS ON RIGHT FOREARM PATENT AND INTACT FLUSHES WELL, NO SIGN OF INFILTRATE NOTED. DEMARIO DRAIN ON RIGHT LOWER BACK INTACT ATTACHED TO DRAINAGE BULB WITH NO OUTPUT NOTED. KEEP PT COMFORTABLE AND ATTENDED, BED IN THE LOWEST POSITION, LOCKED, SIDE RAILS X2 UP WITH CALL LIGHT WITH IN REACH. WILL CONTINUE TO MONITOR PT.
--- NOTE | 2016-10-13 19:20 | NUR ---
RN CLOSING NOTES ALL NEEDS PROVIDED, ATTENDED, AND ANTICIPATED. KEPT PATIENT CLEAN AND COMFORTABLE IN BED. CALL LIGHT WITHIN PATIENT REACH, WILL CONTINUE TO MONITOR ACCORDINGLY. ENDORSED TO NEXT SHIFT RN TO CONTINUE CARE
[2016-10-13 20:00] VITALS: BP 129/70
[2016-10-13] MEDS: GABAPENTIN 300 MG CAPSULE PO SCH (21:57)
[2016-10-13 22:00] VITALS: BP 129/70
[2016-10-14] MEDS: PIPERACILLIN /TAZOBACTAM 3.375 G in IV D5W 50 ML IV SCH ×3 (00:05→11:14)
[2016-10-14] MEDS: oxyCODONE IR immediate release 5 MG CAPSULE PO PRN (05:44)
--- NOTE | 2016-10-14 05:44 | NUR ---
RN NOTES PT COMPLAINS OF RIGHT LOWER BACK PAIN 6/, OXY IR 5 MG TAB GIVEN PO AND TOLERATED WELL. WILL CONTINUE TO MONITOR PT.
--- NOTE | 2016-10-14 06:51 | NUR ---
RN NOTES PT ASLEEP, NO SOB, NOT IN DISTRESS, ON ROOM AIR AND TOLERATED WELL. VITAL SIGNS STABLE, AFEBRILE TEMP OF 99. KEPT PAIN AT TOLERABLE LEVEL, NO EPISODE OF NAUSEA AND VOMITING. DEMARIO DRAIN INTACT, NO OUTPUT NOTED. ALL DUE MEDS GIVEN. NO SIGNIFICANT CHANGE IN PATIENT CONDITION NOTED. ALL NEEDS ATTENDED. WILL ENDORSE TO MORNING RN FOR CONTINUITY OF CARE.
[2016-10-14 07:11] LABS: BASOPHILS % (AUTO) 0.2 % (0.0-2.0); EOSINOPHILS # (AUTO) 0.1 /CMM (0.0-0.7); EOSINOPHILS % (AUTO) 0.8 % (0.0-6.0); HEMATOCRIT 31 % (39-51); HEMOGLOBIN 10.5 g/dL (13.5-17.5); LYMPHOCYTES % (AUTO) 7.6 % (20.0-44.0); MEAN CORPUSCULAR HEMOGLOBIN 29 PG (26.0-33.0); MEAN CORPUSCULAR HGB CONC 34 g/dl (31.0-36.0); MEAN CORPUSCULAR VOLUME 86 fL (80-96); MONOCYTES # (AUTO) 0.9 /CMM (0.1-1.30); MONOCYTES % (AUTO) 6.7 % (2.0-12.0); NEUTROPHILS # (AUTO) 11.1 /CMM (1.8-8.9); NEUTROPHILS % (AUTO) 84.7 % (43.0-81.0); PLATELET COUNT (AUTO) 376 /CMM (150-450); RED BLOOD CELL COUNT(AUTO) 3.61 MIL/uL (4.5-6.0); WHITE BLOOD COUNT (AUTO) 13.1 K/uL (4.3-11.0)
[2016-10-14 07:30] LABS: CALCIUM, SERUM 8.3 mg/dL (8.5-10.1); CREATININE 0.7 mg/dL (0.6-1.3); POTASSIUM 3.7 mmol/L (3.5-5.1)
--- NOTE | 2016-10-14 07:50 | NUR ---
RN OPEN NOTES RECEIVED REPORT FROM TOWN JUSTICE NURSE. PATIENT IS IN BED, ALERT AND ORIENTED TO NAME, PLACE AND TIME. NO SIGNS AND SYMPTOMS OF DISTRESS. DENIED PAIN. 0ML DRAINAGE AT 0745AM. BED IN LOW POSITION, LOCKED AND 2 SIDE RAILS ARE UP. WILL CONTINUE TO MONITOR AND ASSESS PATIENT THROUGH OUT MY SHIFT
[2016-10-14 08:00] VITALS: BP 122/67
[2016-10-14] MEDS: CYANOCOBALAMIN 500 MCG TABLET PO SCH (09:26)
[2016-10-14] MEDS: FOLIC ACID 1 MG TABLET PO SCH (09:26)
[2016-10-14] MEDS: PANTOPRAZOLE 40 MG TABLET.DR PO SCH (09:26)
--- NOTE | 2016-10-14 13:30 | NUR ---
FUNERAL SALES MANAGER NOTES PATIENT'S DISCHARGE ORDERS RECEIVED AND CARRY OUT. VITAL SIGNS STABLE. IV SITE REMOVED. MIDLINE REMOVED. ID BAND AND BLOOD BANK BAND REMOVED. PATIENT IS IN A STABLE CONDITION TO LEAVE. PATIENT ADVISED TO FOLLOW UP WITH A PRIMARY CARE PHYSICIAN WITHIN 7-14 DAYS. PATIENT DOESN'T HAVE PRIMARY PHYSICIAN BUT WILL FIND ONE. DISCHARGE INSTRUCTION EXPLAINED TO PATIENT AND PATIENT'S , PATIENT VERBALIZE UNDERSTANDING. NO NEW CONCERNS IDENTIFIED UPON DISCHARGE. NO SIGNS OR SYMPTOMS OF DISTRESS AT TIME OF DISCHARGE. SKIN IN INTACT. PATIENT TRANSPORTED HOME VIA A PRIVATE CAR BY HIS . I ESCORTED PATIENT DOWN TO LOBBY VIA A WHEELCHAIR.
== END 2016-10-14 13:20 | disposition home health service (06) | DRG 983 ==
LOC: ER 03:50 → TELE 05:26 → MED 10:54
PROVIDERS: ADMIT Family Medicine
PROC: 0K9K30Z Drainage of Right Abdomen Muscle with Drainage Device, Percutaneous Approach (ICD-10-PCS; principal; 2016-10-08)
PROC: 0KB Muscles, Excision (ICD-10-PCS; principal; 2016-10-08)
DX: K65.1 Peritoneal abscess (principal); D63.8 Anemia in other chronic diseases classified elsewhere; E86.0 Dehydration; G89.29 Other chronic pain; D72.829 Elevated white blood cell count, unspecified; R63.4 Abnormal weight loss; D50.9 Iron deficiency anemia, unspecified; Z68.21 Body mass index [BMI] 21.0-21.9, adult; I27.2 Other secondary pulmonary hypertension; K40.90 Unilateral inguinal hernia, without obstruction or gangrene, not specified as recurrent; J43.9 Emphysema, unspecified; F17.200 Nicotine dependence, unspecified, uncomplicated; M54.16 Radiculopathy, lumbar region
CPT/HCPCS: 36415; 70450-TC; 71010-TC; 71270-TC; 72194-TC; 74170-TC; 74178; 75989-TC; 77012-TC; 80048-TC; 80061-TC; 80076-TC; 81000-TC; 82306; 82378; 82728-TC; 82746; 82784; 82962-TC; 83540-TC; 83615-TC; 83735-TC; 84100-TC; 84155; 84165; 84439-TC; 84443-TC; 84484-TC; 85025-TC; 85652-TC; 85730-TC; 86334; 86580-TC; 86707; 86803; 86850-TC; 87040-TC; 87070-TC; 87081-TC; 87350; 88305-TC; 88312-TC; 88342; 93307-TC; A4606; A6402; J1885; J2250; J2310; J2543; J2916; J3010; J3490; J7030; J7050; J7060; Q9967; Z7610

== ENCOUNTER 2019-04-19 13:14 | Emergency (ER) | payer BC ==
[~2019-04-19] VITALS: Ht 157.5 cm; Wt 81.6 kg
[~2019-04-19 13:14] MED LIST: ACET325T53 PO; ERTA1VIA2 IV
[2019-04-19 13:43] VITALS: BP 126/99
--- NOTE | 2019-04-19 13:46 | NUR ---
RADHA DIEHL AT BEDSIDE FOR EVAL.
--- NOTE | 2019-04-19 14:07 | NUR ---
Patient discharged to home in stable condition. Written and verbal after care instructions given. Patient verbalizes understanding of instruction.
[2019-04-23] MEDS ORDERED: DOXY100C2 PO (12:43)
[2019-04-23] MEDS ORDERED: SULF1TAB48 PO (12:43)
== END 2019-04-19 14:11 | disposition home or self-care (01) ==
LOC: ER 13:14
DX: L02.01 Cutaneous abscess of face (principal); F17.200 Nicotine dependence, unspecified, uncomplicated; Z98.890 Other specified postprocedural states; Z79.899 Other long term (current) drug therapy

== ENCOUNTER 2019-04-21 09:06 | Inpatient (IN) | payer BC ==
[~2019-04-21] VITALS: Ht 160 cm; Wt 82.1 kg
--- NOTE | 2019-04-21 09:19 | NUR ---
RECEIVED PATIENT FROM HOME.C/O PAIN AND SWEELING IN FACE ESPECIALLY IN NOSE AND BELOW R EAR AND L EYE.C/O PAIN IN THE FOREHEAD.
[2019-04-21] MEDS ORDERED: KETOROLAC TROMETHAMINE INJ 30 MG/ML VIAL IV ONE (09:30)
[2019-04-21] MEDS ORDERED: IV NS 0.9% 1,000 ML BAG IV ONE (09:30)
[2019-04-21] MEDS ORDERED: VANCOMYCIN 1 GM in IV D5W 250 ML IV ONE (09:30)
[2019-04-21] MEDS ORDERED: PIPERACILLIN /TAZOBACTAM 3.375 G in IV D5W 50 ML IV ONE (09:30)
[2019-04-21] MEDS ORDERED: KETOROLAC TROMETHAMINE 15 MG/ML VIAL ONE (09:48)
[2019-04-21 09:52] LABS: BASOPHILS # (AUTO) 0.1 /CMM (0.0-0.2); BASOPHILS % (AUTO) 0.6 % (0.0-2.0); EOSINOPHILS % (AUTO) 0.1 % (0.0-6.0); HEMATOCRIT 44 % (39-51); HEMOGLOBIN 14.7 g/dL (13.5-17.5); LYMPHOCYTES # (AUTO) 1.1 /CMM (0.8-4.8); MEAN CORPUSCULAR HGB CONC 34 g/dl (31.0-36.0); MEAN CORPUSCULAR VOLUME 89 fL (80-96); MONOCYTES % (AUTO) 7.2 % (2.0-12.0); NEUTROPHILS # (AUTO) 11.3 /CMM (1.8-8.9); NEUTROPHILS % (AUTO) 84.1 % (43.0-81.0); PLATELET COUNT (AUTO) 237 /CMM (150-450); RED BLOOD CELL COUNT(AUTO) 4.87 MIL/uL (4.5-6.0); WHITE BLOOD COUNT (AUTO) 13.4 K/uL (4.3-11.0)
[2019-04-21 10:02] LABS: CREATININE 1.2 mg/dL (0.6-1.3)
[2019-04-21 10:07] LABS: ALBUMIN 3.9 g/dL (3.4-5.0); BILIRUBIN,DIRECT 0.2 mg/dL (0.0-0.2); BILIRUBIN,TOTAL 0.9 mg/dL (0.2-1.0)
[2019-04-21] MEDS ORDERED: IV NS 0.9% 250 ML IV ONE (10:10)
[2019-04-21] MEDS ORDERED: CT SWABBABLE VALVE TRANS SET 1 EA INFUS.SET MC ONE (10:10)
[2019-04-21] MEDS ORDERED: IOHEXOL-300 100 ML VIAL IV ONE (10:10)
--- NOTE | 2019-04-21 11:37 | NUR ---
Dr. Buenrostro of [facility] will call for an md to
--- NOTE | 2019-04-21 11:46 | NUR ---
Dr. Washington called from [facility] for to , speaking now to dr redd
--- NOTE | 2019-04-21 12:20 | NUR ---
waiting for call back from [facility]
--- NOTE | 2019-04-21 12:49 | NUR ---
left message for dr jordan, waiting for call back Addendum: 04/21/19 at 1249 by SULY (oral & maxillofacial surgeon)
--- NOTE | 2019-04-21 13:13 | NUR ---
faxed clinicals/insurance auth to dr jordan' office
--- NOTE | 2019-04-21 15:44 | NUR ---
REPORT GIVEN TO LUCRECIA FAULKNER .PATIENT TO TRANSFER TO [facility].
--- NOTE | 2019-04-21 16:15 | NUR ---
S/P IINCISION AND DRAINAGE OF NOSE BY .MILD BLEEDING NOTED.REPORT GIVEN TO LUCRECIA FAULKNER.
--- NOTE | 2019-04-21 16:16 | NUR ---
PATIENT TRANSFERRED TO [facility]
[2019-04-21 16:30] VITALS: BP 128/83
--- NOTE | 2019-04-21 16:41 | NUR ---
ms rn received a new admission from er,58 year old male, awake,alert,oriented x4,not in any form of distress, respirations even and unlabored,no sob noted, lungs are clear,abdomen soft,positive bowel sounds,denies pain at this time, came in w. dx of facial cellulitis secondary to insect bite, left face swollen, will monitor patient's condition.
[2019-04-21] MEDS ORDERED: ZOLPIDEM TARTRATE 5 MG TABLET PO PRN (17:00)
[2019-04-21] MEDS ORDERED: Z GUARD REMEDY 2 OZ OINT TP PRN (17:00)
[2019-04-21] MEDS ORDERED: ACETAMINOPHEN 325 MG TABLET PO PRN (17:00)
[2019-04-21] MEDS ORDERED: ONDANSETRON HCL/PF 4 MG/2 ML VIAL IVP PRN (17:00)
[2019-04-21] MEDS ORDERED: HYDROCODONE/APAP 10/325MG 1 EA TABLET PO PRN (17:00)
[2019-04-21] MEDS ORDERED: FEE PK DOSING 1 MIN EA MC ONE (17:07)
[2019-04-21] MEDS: PIPERACILLIN /TAZOBACTAM 3.375 G in IV D5W 50 ML IV SCH (18:19)
[2019-04-21] MEDS: MUPIROCIN OINT 2% 22 GM TUBE SCH ×2 (18:20→21:42)
--- NOTE | 2019-04-21 19:30 | NUR ---
MS/RN OPENING NOTES PT RECEIVED AWAKE, RESTING COMFORTABLY IN BED. A/OX4. ON ROOM AIR, BREATHING EVEN AND UNLABORED. NO C/O PAIN AT THIS TIME. LEFT FACIAL SWELLING NOTED. IN NO ACUTE DISTRESS. NO NEEDS EXPRESSED AT THIS TIME. IV TO RAC PATENT AND INTACT. BED IN LOW/LOCKED POSITION WITH CALL LIGHT IN REACH. BILAT. UPPER SIDE RAILS IN PLACE. WILL CONTINUE TO MONITOR
[2019-04-21 20:00] VITALS: BP 131/77
[2019-04-21] MEDS: VANCOMYCIN 1 GM in IV D5W 250 ML IV SCH (21:42)
--- NOTE | 2019-04-21 21:57 | NUR ---
VERY MILD BLEEDING NOTED FROM LEFT NOSTRIL FROM BACTROBAN SWAB.
[2019-04-22] MEDS: PIPERACILLIN /TAZOBACTAM 3.375 G in IV D5W 50 ML IV SCH ×4 (00:47→17:43)
--- NOTE | 2019-04-22 07:03 | NUR ---
MS/RN CLOSING NOTES PT RESTING COMFORTABLY IN BED. ON RA, BREATHING EVEN AND UNLABORED. DENIES SOB AND PAIN. IN NO ACUTE RESPIRATORY DISTRESS. NO FURTHER BLEEDING NOTED FROM LEFT NOSTRIL. STILL WITH SIGNIFICANT LEFT FACIAL SWELLING. IV TO RAC PATENT AND INTACT RUNNING NS TKO. NO SIGNIFICANT CHANGES OVERNIGHT. ALL NEEDS MET AND ATTENDED. BED IN LOW/LOCKED POSITION WITH CALL LIGHT IN REACH. SIDE RAILS UPX2, HOB ELEVATED. WILL ENDORSE TO DAY SHIFT RN AJ.
--- NOTE | 2019-04-22 07:55 | NUR ---
MS RN OPENING NOTES PATIENT AWAKE, ALERT AND ORIENTED X4, RESTING IN BED. BREATHING EVEN AND UNLABORED. NO SIGNS OF DISTRESS. BED IN LOW LOCKED POSITION WITH UPPER SIDE RAILS UP X2. PATIENT REQUESTED TO USE THE RESTROOM WHILE STAFF PRESENT. IV FLUIDS CONTINUED. WILL CONTINUE TO MONITOR.
[2019-04-22 08:00] VITALS: BP 108/74
--- NOTE | 2019-04-22 08:03 | NUR ---
MS RN NOTES REPORT GIVEN TO EARLE FAULKNER FOR AJ
[2019-04-22] MEDS: MUPIROCIN OINT 2% 22 GM TUBE SCH ×2 (09:00→20:59)
[2019-04-22 09:25] LABS: BASOPHILS # (AUTO) 0.1 /CMM (0.0-0.2); BASOPHILS % (AUTO) 0.9 % (0.0-2.0); EOSINOPHILS % (AUTO) 0.8 % (0.0-6.0); HEMATOCRIT 40 % (39-51); HEMOGLOBIN 13.7 g/dL (13.5-17.5); LYMPHOCYTES # (AUTO) 1.1 /CMM (0.8-4.8); LYMPHOCYTES % (AUTO) 13.2 % (20.0-44.0); MEAN CORPUSCULAR HGB CONC 34 g/dl (31.0-36.0); MEAN CORPUSCULAR VOLUME 90 fL (80-96); MONOCYTES # (AUTO) 0.5 /CMM (0.1-1.30); MONOCYTES % (AUTO) 5.8 % (2.0-12.0); NEUTROPHILS # (AUTO) 6.6 /CMM (1.8-8.9); NEUTROPHILS % (AUTO) 79.3 % (43.0-81.0); PLATELET COUNT (AUTO) 211 /CMM (150-450); RED BLOOD CELL COUNT(AUTO) 4.49 MIL/uL (4.5-6.0); WHITE BLOOD COUNT (AUTO) 8.3 K/uL (4.3-11.0)
--- NOTE | 2019-04-22 10:21 | NUR ---
ALERT, ORIENTED AND VERY APPROPRAITE, NO COMPLAINT OF PAIN ON LEFT NOSE.
[2019-04-22 10:25] LABS: ALBUMIN 3.3 g/dL (3.4-5.0); BILIRUBIN,TOTAL 0.7 mg/dL (0.2-1.0); CALCIUM, SERUM 8.9 mg/dL (8.5-10.1); CREATININE 1.1 mg/dL (0.6-1.3); MAGNESIUM 2.4 mg/dL (1.8-2.4); PHOSPHORUS 2.3 mg/dL (2.5-4.9); POTASSIUM 3.9 mmol/L (3.5-5.1)
[2019-04-22] MEDS: VANCOMYCIN 1 GM in IV D5W 250 ML IV SCH ×2 (11:08→16:26)
[2019-04-22] MEDS ORDERED: K PHOS NEUTRAL 250 MG TABLET PO ONE (15:30)
[2019-04-22 16:00] VITALS: BP 113/80
--- NOTE | 2019-04-22 16:06 | NUR ---
seen by LINE TESTER, Sweta, demanded to know culture result of his Nasal wound, referred him to LINE TESTER for results and explanations. Phosphorus today 2.3, replenished with NEUTRA PHOS, 2 tabs, 500mg po,
--- NOTE | 2019-04-22 19:30 | NUR ---
MS RN OPENING NOTES PATIENT AWAKE AND RESTING IN BED. ALERT & ORIENTED X 4. ON ROOM AIR. LEFT NOSTRIL SWOLLEN. NO S/S OF ACUTE RESPIRATORY DISTRESS AND NO COMPLAINTS OF DIFFICULTY BREATHING. NO COMPLAINTS OF PAIN AT THIS TIME. IV ON RIGHT AC, SIZE 20, INTACT & PATENT. BED LOCKED, SEMI-BARBER'S POSITION, SIDE RAILS X2, CALL LIGHT WITHIN REACH. WILL CONTINUE TO MONITOR.
[2019-04-22 20:00] VITALS: BP 115/69
[2019-04-23] MEDS: PIPERACILLIN /TAZOBACTAM 3.375 G in IV D5W 50 ML IV SCH ×4 (00:41→11:05)
[2019-04-23] MEDS: VANCOMYCIN 1 GM in IV D5W 250 ML IV SCH ×2 (02:21→09:00)
--- NOTE | 2019-04-23 06:54 | NUR ---
MS RN CLOSING NOTES PATIENT AWAKE AND RESTING IN BED. ALERT & ORIENTED X 4. ON ROOM AIR. SWELLING PRESENT IN LEFT NOSTRIL. NO S/S OF ACUTE RESPIRATORY DISTRESS. NO COMPLAINTS OF SOB OR PAIN. IV ON RIGHT AC, SIZE 20, INTACT AND PATENT. BED LOCKED, SUPINE POSITION, SIDE RAILS X2, CALL LIGHT WITHIN REACH. WILL ENDORSE TO DAY SHIFT NURSE TO FOLLOW PLAN OF CARE.
[2019-04-23 07:18] LABS: CALCIUM, SERUM 8.7 mg/dL (8.5-10.1); CREATININE 1.1 mg/dL (0.6-1.3); PHOSPHORUS 3.6 mg/dL (2.5-4.9); POTASSIUM 4.3 mmol/L (3.5-5.1)
--- NOTE | 2019-04-23 07:29 | NUR ---
RN OPENING NOTE PT WAS RECEIVED IN BED AT LOWEST AND LOCKED POSITION WITH SIDE RAILS UP X2, A/O X4 BREATHING EVEN AND UNLABORED ON RA WITH NO S/S OF ANY DISTRESS OR PAIN AT THIS TIME, NOTED TO HAVE SLIGHT SWELLING ON LEFT NOSTRIL, IV IS PATENT AND INTACT, SAFETY PRECAUTIONS IN PLACE, CALL LIGHT IN REACH, WILL MONITOR ACCORDINGLY
[2019-04-23 08:00] VITALS: BP 116/69
[2019-04-23] MEDS: MUPIROCIN OINT 2% 22 GM TUBE SCH (08:45)
[2019-04-23] MEDS ORDERED: DOXY100C2 PO (12:43)
[2019-04-23] MEDS ORDERED: SULF1TAB48 PO (12:43)
--- NOTE | 2019-04-23 14:17 | NUR ---
DISCHARGED NOTE PATIENT IS ALERT AND ORIENTED X4. IN ROOM AIR AND SATURATION AT 99%. DENIES SHORTNESS OF BREATH. REGULAR RESPIRATION AND UNLABORED. PHOTO TAKEN ON THE RIGHT AND LEFT FACE AND FILE IT ON THE CHART. IV LINE WAS REMOVED,PATIENT WAS GIVEN A EDUCATIONAL READING MATERIALS. PATIENT AND ARE GIVEN INSTRUCTIONS AND THEY VERBALIZED UNDERSTANDING. PATIENT DISCHARGED WITH STABLE CONDITION, AMBULATORY ACCOMPANIED BY HIS AND MOTHER.
== END 2019-04-23 13:15 | disposition home or self-care (01) | DRG 580 ==
LOC: ER 09:07 → MED 14:36
PROVIDERS: ADMIT Nurse Practitioner Acute Care; ATTEND Nurse Practitioner Acute Care
PROC: 0J910ZZ Drainage of Face Subcutaneous Tissue and Fascia, Open Approach (ICD-10-PCS; principal; 2019-04-21)
DX: L03.211 Cellulitis of face (principal); L02.01 Cutaneous abscess of face; J32.9 Chronic sinusitis, unspecified; H83.09 Labyrinthitis, unspecified ear; Z87.891 Personal history of nicotine dependence; Z98.890 Other specified postprocedural states; J34.89 Other specified disorders of nose and nasal sinuses; B95.62 Methicillin resistant Staphylococcus aureus infection as the cause of diseases classified elsewhere
CPT/HCPCS: 36415; 70487-TC; 80048-TC; 80053-TC; 80061-TC; 80076-TC; 80202-TC; 83605-TC; 83735-TC; 84100-TC; 85025-TC; 87040-TC; 87070-TC; 87081-TC; G0378; J1885; J2543; J3370; J7030; J7040; J7050; J7060; Q9967